=== PATIENT | female | born 1970 | race African-American/Black ===

== ENCOUNTER 2017-06-15 20:33 | Inpatient (IN) | payer BC ==
[~2017-06-15 20:33] MED LIST: ISOVUE-370 76%-LOCM 1 ML ONE
[2017-06-15] MEDS ORDERED: Labetalol HCl 100 MG/20 ML VIAL ONE (21:06)
[2017-06-15 21:08] LABS: #Eosinphils 0.1 thou/uL (0.0-0.7); #Lymphocytes 1.9 thou/uL (1.20-3.40); #Monocytes 0.8 thou/uL (0.11-0.59); #Neutrophils 8.1 thou/uL (1.40-6.50); %Eosinophils 0.7 % (0.0-10.0); %Lymphocytes 17.2 % (21.0-51.0); %Monocytes 7.1 % (0.0-10.0); %Neutrophils 74.9 % (42.0-75.0); Hemoglobin 13.4 g/dL (12.0-16.0); Mean Corpuscular HGB CONC 34.2 g/dL (32.0-36.0); Mean Corpuscular Hemoglobin 31.6 pg (27.0-31.0); Mean Corpuscular Volume 92.6 fl (81.0-99.0); Mean Platelet Volume 8.7 fL (7.4-10.4); Platelet Count 222 thou/uL (130-400); RBC Distribution Width 11.2 % (11.5-14.5); Red Blood Cell (RBC) Count 4.23 mill/uL (4.20-5.40); White Blood Cell (WBC) Count 10.7 thou/uL (4.8-10.8)
[2017-06-15 21:30] LABS: ALT (SGPT) 20 U/L (8-55); AST (SGOT) 22 U/L (5-34); Albumin 4.5 g/dL (3.5-5.0); Alkaline Phosphatase 101 U/L (40-150); Anion Gap 14 mmol/L (10-20); BUN (Urea Nitrogen) 12 mg/dL (7.0-18.7); Bilirubin, Total 0.5 mg/dL (0.2-1.2); CK (CPK) 102 U/L (29-168); Calc. Creatinine Clearance 0 mL/min (70-130); Calcium 9.7 mg/dL (7.8-10.44); Carbon Dioxide 24 mmol/L (22-29); Chloride 102 mmol/L (98-107); Estimated GFR-MDRD 82; Globulin 3.4 g/dL (2.4-3.5); Glucose 120 mg/dL (70-105); Lipase 27 U/L (8-78); Protein, Total 7.9 g/dL (6.0-8.3); Sodium 136 mmol/L (136-145)
--- NOTE | 2017-06-15 21:31 | RAD ---
PORTABLE AP CHEST X-RAY 06/15/17 HISTORY: High blood pressure reading at home. Chest pain. COMPARISON: None available. FINDINGS: The cardiac silhouette and pulmonary vasculature are within normal limits. The lungs are clear. osseo us structures are intact. Surgical clips overlie the right upper quadrant. IMPRESSION: No acute cardiopulmonary process. POS: [facility]
[2017-06-15 21:34] LABS: CKMB 0.5 ng/mL (0-6.6); Troponin I Less than 0.010 ng/mL (< 0.028)
[2017-06-15] MEDS ORDERED: Nitroglycerin 2% Ointment 1 INCH/1 GM Packet ONE (22:03)
--- NOTE | 2017-06-15 22:30 | CT ---
CT ANGIOGRAM THORAX WITH IV CONTRAST AND 3D RECONSTRUCTIONS 06/15/17 HISTORY: Chest pain and tachycardia. Nausea. FINDINGS: No filling defects are seen in the pulmonary arteries to suggest a pulmonary embolus. The thoracic ao rta is normal in caliber without evidence of an aortic dissection. There is no evidence of lymphadenopathy. There is distention of the distal esophagus with gas and question of mild thickening involving the wa lls of the distal esophagus. There are dependent atelectasis in the lungs bilaterally. No pulmonary nodule, mass, or pleural effus ion is seen bilaterally. Postsurgical changes related to cholecystectomy are noted. There is suggestion of severe focal narrowing involving the origin of the celiac axis. The SMA is ect atic but incompletely imaged or evaluated on this exam. The upper abdomen otherwise demonstrates a normal CT appearance for arterial phase of imaging. IMPRESSION: 1. No CT evidence of a pulmonary embolus. 2. Gaseous distention of the distal esophagus with mild prominence and questionable thickening i nvolving the haeys of the distal esophagus. 3. 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 POS: [facility]
[2017-06-15] MEDS ORDERED: Ondansetron ODT 4 MG TAB SL PRN (23:23)
[2017-06-15] MEDS ORDERED: Ondansetron HCl/PF 4 MG/2 ML Vial IVP PRN (23:23)
[2017-06-15 23:31] VITALS: BMI 26.3
[2017-06-16 00:51] LABS: Troponin I Less than 0.010 ng/mL (< 0.028)
[2017-06-16] MEDS ORDERED: cloNIDine 0.1 MG TAB PO PRN (00:53)
[2017-06-16] MEDS ORDERED: HYDROcodone/Acetaminophen 5/325 mg Tablet PO PRN (00:53)
[2017-06-16] MEDS: Acetaminophen 325 MG TAB PO PRN (01:28)
[2017-06-16 03:57] LABS: Troponin I Less than 0.010 ng/mL (< 0.028)
[2017-06-16] MEDS ORDERED: Calcium Carbonate 500 MG ChewTAB PO PRN (04:07)
[2017-06-16] MEDS ORDERED: Milk Of Magnesia 30 ML UDCUP PO PRN (04:07)
[2017-06-16] MEDS ORDERED: Senokot 8.6 MG TAB PO PRN (04:07)
[2017-06-16] MEDS ORDERED: Mag-Al 1200 mg/1200 mg/30 ML UDCUP PO PRN (04:07)
[2017-06-16] MEDS ORDERED: Ondansetron ODT 4 MG TAB PO PRN (04:07)
[2017-06-16] MEDS ORDERED: Ondansetron HCl/PF 4 MG/2 ML Vial IVP PRN (04:07)
[2017-06-16] MEDS ORDERED: Nitroglycerin 0.4 MG TAB (25 Tab Bottle) PO PRN (04:07)
--- NOTE | 2017-06-16 05:00 | HP ---
DATE OF ADMISSION: 06/15/2017 The patient was seen and examined on 06/15/2017. PRIMARY CARE PHYSICIAN: Trey Ham M.D. PRIMARY ANIMAL BREEDER: Karl Li M.D. CHIEF COMPLAINT: Palpitations. HISTORY OF PRESENT ILLNESS: The patient is a 47-year-old female with hypertension, presented to the emergency room with chest discomfort and palpitations. Over the last 24 hours, the patient has symptoms from seasonal allergies. The patient took over-the- counter decongestant as well as Afrin nasal spray. Twenty minutes after taking Afrin nasal spray, heron munoz noticed that her heart rate was in 160s on her Apple watch. She also had mild chest discomfort oanh ng with nausea. This started around 7:30 p.m. while she was resting and watching TV. She denies any shortness of breath, lightheadedness, dizziness or syncope. She felt the palpitations. For this re ason, she presented to the emergency room. PAST MEDICAL HISTORY: 1. Hypertension. 2. Negative stress test earlier this year at Dr. Li's office per patient report. The patient also had an echocardiogram at Dr. Li's office earlier this year. PAST SURGICAL HISTORY: 1. Cholecystectomy. 2. Hysterectomy. 3. Tubal ligation. ALLERGIES: No known drug allergies. CURRENT HOME MEDICATIONS: Toprol-XL 50 mg at bedtime. SOCIAL HISTORY: The patient currently lives at home. No smoking, alcohol, or drug use. She is FULL CODE, makes her own decision. FAMILY HISTORY: Positive for diabetes. No premature coronary artery disease in her family. REVIEW OF SYSTEMS: The following complete review of systems was negative, unless otherwise mentioned in the HPI or below: Constitutional: Weight loss or gain, ability to conduct usual activities. Sk in: Rash, itching. Eyes: Double vision, pain. ENT/Mouth: Nose bleeding, neck stiffness, pain, te nderness. Cardiovascular: Palpitations, dyspnea on exertion, orthopnea. Respiratory: Shortness of breath, wheezing, cough, hemoptysis, fever or night sweats. Gastrointestinal: Poor appetite, abdom inal pain, heartburn, nausea, vomiting, constipation, or diarrhea. Genitourinary: Urgency, frequenc y, dysuria, nocturia. Musculoskeletal: Pain, swelling. Neurologic/Psychiatric: Anxiety, depressio n. Allergy/Immunologic: Skin rash, bleeding tendency. PHYSICAL EXAMINATION: VITAL SIGNS: In the emergency room showed temperature 98.9, respiration 18, pulse rate of 141 with a blood pressure 145/91 with O2 saturation 100% on room air. GENERAL: A 47-year-old female in no apparent distress. Denies any chest discomfort at this time. HEENT: Head atraumatic, normocephalic. Sclerae are anicteric. Moist mucous membrane, no oral lesio n. NECK: Supple, no JVD appreciated. No carotid bruit. LUNGS: Clear to auscultation bilaterally, no wheezing, rales or rhonchi. HEART: S1, S2 present. Tachycardic, no murmur, rubs or gallops appreciated. ABDOMEN: Soft. Bowel sounds present, no rebound, guarding, no costovertebral angle tenderness. EXTREMITIES: No edema or calf tenderness. NEUROLOGIC: Grossly nonfocal, moves all four extremities. PSYCHIATRY: Alert, awake, oriented x3. SKIN: Warm and dry. LYMPH NODES: No palpable lymph nodes in the neck. PERIPHERAL VASCULAR: Radial pulses palpable bilaterally. MUSCULOSKELETAL: No joint swelling or tenderness. LABORATORY AND X-RAY FINDINGS: Thyroid studies were normal earlier this year per patient report. Th e labs were done at outside facility. CBC showed WBC 10.7 with hemoglobin 13.4, platelet of 222. Ch emistries showed sodium 136, potassium 4, chloride 102, bicarbonate 24, BUN 12, creatinine 0.89. Tro ponin was normal. Lactic acid was 1.0. Chest x-ray by my review was negative for infiltrate. CT an giogram of the chest was negative for pulmonary embolism. It showed gaseous distention of the distal esophagus with mild prominence and questionable thickening involving the wall of the distal esophagu s. It also showed focal severe narrowing of the origin of the celiac artery. EKG by my review showe d sinus tachycardia without any ST-T wave changes. IMPRESSION: 1. Palpitations with chest discomfort of unclear etiology. Maximum heart rate at home was in 160s p er patient report. Please note that patient recently started kabv-kuw-cfolubi decongestant as well a s Afrin nasal spray. Thyroid studies were normal earlier this year at outside facility per patient r eport. The patient denies any caffeine use. 2. Hypertension. 3. Seasonal allergies. 4. Negative stress test earlier this year at Dr. Li's office. The patient also had echocardi ogram at the same time. 5. Gaseous distention of the distal esophagus with questionable wall thickening, suspected secondary to gastroesophageal reflux disease. 6. 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 The patient is asymptomatic and denie s any symptoms consistent with intestinal angina. PLAN: The patient will be monitored on the telemetry unit. Cardiology will be consulted. We will r esume beta blockers. Serial troponins are negative. The patient had negative thyroid studies aggie gonzalez this year per patient report at outside facility. Plan of care was discussed with the patient, she stated understanding.
[2017-06-16] MEDS: Fluticasone Propionate Nasal Spray 16 gm Bottle NASAL SCH (10:50)
[2017-06-16] MEDS: Loratadine 10 MG TAB PO SCH (10:51)
[2017-06-16] MEDS: Aspirin 81 mg Enteric Coated Tablet PO SCH (10:51)
--- NOTE | 2017-06-16 18:16 | PDOC.PN ---
- Subjective Encounter Start Date: 06/16/17 Encounter Start Time: 11:00 Pt seen for followup re: chest pain. Denies chest pain, shortness of breath, fevers or chills. - Objective Resuscitation Status: Resuscitation Status FULL:Full Resuscitation MAR Reviewed: Yes Vital Signs & Weight: Vital Signs (12 hours) Temp Pulse Resp BP BP Pulse Ox 06/16/17 16:23 99.1 F 101 H 16 120/74 97 06/16/17 12:12 98.4 F 96 17 127/77 100 06/16/17 08:00 99.1 F 84 18 120/72 120/72 98 Weight Weight 167 lb 14.4 oz I&O: 06/15/17 06/16/17 06/17/17 06:59 06:59 06:59 Intake Total 240 Balance 240 Result Diagrams: 06/15/17 21:04 06/15/17 21:04 EKG Reviewed by me: Yes (Tele: NSR) Phys Exam - Physical Examination Constitutional: NAD HEENT: moist MMs, oral pharynx no lesions Neck: supple Respiratory: clear to auscultation bilateral Cardiovascular: RRR Gastrointestinal: positive bowel sounds Musculoskeletal: pulses present Neurological: moves all 4 limbs Psychiatric: normal affect Skin: no rash Dx/Plan (1) Chest pain Code(s): R07.9 - CHEST PAIN, UNSPECIFIED Status: Acute Comment: No recurrence, pt reports having a normal stress test earlier this year. Awaiting cardiology input. (2) Tachycardia Code(s): R00.0 - TACHYCARDIA, UNSPECIFIED Status: Acute Comment: Resolved, etiology unclear. (3) HTN (hypertension) Code(s): I10 - ESSENTIAL (PRIMARY) HYPERTENSION Status: Chronic Comment: Monitor vital signs, titrate antihypertensives as needed. - Plan * . Review of Systems - Review of Systems Constitutional: negative: fever, chills, sweats, weakness, malaise Respiratory: negative: Cough, Dry, Shortness of Breath, Hemoptysis, SOB with Excertion, Pleuritic Pain, Sputum, Wheezing Cardiovascular: negative: chest pain, palpitations, orthopnea, paroxysmal nocturnal dyspnea, edema, light headedness - Medications/Allergies Allergies/Adverse Reactions: Allergies Allergy/AdvReac Type Severity Reaction Status Date / Time No Known Drug Allergies Allergy Verified 06/15/17 23:29 Medications: Current Medications Acetaminophen (Tylenol) 650 mg PO Q4H PRN PRN Reason: Headache/Fever or Mild Pain Last Admin: 06/16/17 01:28 Dose: 650 mg Hydrocodone Bitart/Acetaminophen ([place] 5/325) 1 tab PO Q4H PRN PRN Reason: Moderate Pain (4-6) Al Hydroxide/Mg Hydroxide (Maalox) 30 ml PO Q6H PRN PRN Reason: Heartburn or Indigestion Aspirin (Ecotrin) 81 mg PO DAILY [facility] Last Admin: 06/16/17 10:51 Dose: 81 mg Calcium Carbonate (Tums) 1,000 mg PO Q4H PRN PRN Reason: Heartburn or Indigestion Clonidine (Catapres) 0.1 mg PO Q4H PRN PRN Reason: Systolic BP > 180 Fluticasone Propionate (Flonase Nasal [place]) 0 gm NASAL DAILY [facility] Last Admin: 06/16/17 10:50 Dose: 2 spr Loratadine (Claritin) 10 mg PO DAILY [facility] Last Admin: 06/16/17 10:51 Dose: 10 mg Magnesium Hydroxide (Milk Of Magnesium) 30 ml PO DAILYPRN PRN PRN Reason: Constipation Nitroglycerin (Nitrostat) 0.4 mg PO Q5MIN PRN PRN Reason: Chest Pain Ondansetron HCl (Zofran Odt) 4 mg PO Q6H PRN PRN Reason: Nausea/Vomiting Ondansetron HCl (Zofran) 4 mg IVP Q6H PRN PRN Reason: Nausea/Vomiting Pantoprazole Sodium (Protonix) 40 mg PO BID [facility] Last Admin: 06/16/17 10:51 Dose: 40 mg Senna (Senokot) 2 tab PO HSPRN PRN PRN Reason: Constipation Sodium Chloride (Flush - Normal Saline) 10 ml IVF Q12HR [facility] Last Admin: 06/16/17 10:52 Dose: 10 ml Sodium Chloride (Flush - Normal Saline) 10 ml IVF PRN PRN PRN Reason: Saline Flush
[2017-06-17] MEDS: Acetaminophen 325 MG TAB PO PRN (04:14)
[2017-06-17] MEDS: Fluticasone Propionate Nasal Spray 16 gm Bottle NASAL SCH (09:21)
[2017-06-17] MEDS: Aspirin 81 mg Enteric Coated Tablet PO SCH (09:24)
[2017-06-17] MEDS: Loratadine 10 MG TAB PO SCH (09:25)
--- NOTE | 2017-06-17 14:06 | PDOC.CTH ---
Cardiology Progress Note - Subjective The pt seen and examined. No overnight events. No cardiac complaints. - Objective Vital Signs Temp Pulse Resp BP BP Pulse Ox 06/17/17 08:00 98.7 F 89 18 118/76 100 06/17/17 04:17 99.4 F 99 18 119/77 119/77 97 Weight 167 lb 14.4 oz 06/16/17 06/17/17 06/18/17 06:59 06:59 06:59 Intake Total 240 3320 Balance 240 3320 - Physical Examination General/Neuro: alert & oriented x3 Neck: no JVD present Lungs: CTA Heart: RRR Abdomen: soft Extremities: other: (No edema) - Telemetry Telemetry Rhythm: SR 90-100s - Labs Result Diagrams: 06/15/17 21:04 06/15/17 21:04 Troponin/CKMB CK-MB (CK-2) 0.5 ng/mL (0-6.6) 06/15/17 21:04 Troponin I Less than 0.010 ng/mL (< 0.028) 06/16/17 03:17 - Assessment/Plan 1. Tachycardia - HR went up to 130s for 5 mins last night. Her HR has been 90- 100s. Her HR was up to 100s with walking around the unit today without any cardiac complaints. 2. HTN - stable with Metoprolol XL 50mg daily and ASA 81mg daily; cont. to monitor MAR reviewed * Education of how to check her VS, especially HR. * From cardiac standpoint, the pt is stable to d/c home. The pt will f/u with Dr Narvaez's office within 2-4 wks. . Review of Systems - Review of Systems Constitutional: reports: no symptoms reported EENTM: reports: no symptoms reported Respiratory: reports: no symptoms reported Cardiac (ROS): reports: no symptoms reported ABD/GI: reports: no symptoms reported : reports: no symptoms reported Musculoskeletal: reports: no symptoms reported Skin: reports: no symptoms reported
[2017-06-17 17:52] VITALS: BP 120/74; TEMP 98.4
--- NOTE | 2017-06-17 22:29 | DIS ---
DATE OF ADMISSION: 06/15/2017 DATE OF DISCHARGE: 06/17/2017 PRIMARY CARE PHYSICIAN: Trey Ham M.D. DISCHARGE DIAGNOSES: 1. Palpitations. 2. Tachycardia. CONDITION OF PATIENT ON THE DAY OF DISCHARGE: Stable. I assessed Ms. Agee on the day of discharge. She denies any chest pain or shortness of breath. No recurrence of palpitations. Vital signs are stable. S1 and S2 are heard, regular. Lungs are clear to auscultation bilaterally. CONSULTATIONS DURING THIS HOSPITALIZATION: Cardiology, Dr. Bedolla. DISCHARGE MEDICATIONS: Toprol-XL 50 mg daily. HOSPITAL COURSE: Ms. Agee is a pleasant 47-year-old lady who was admitted to [facility] on 06/15/2017 for tachycardia and palpitations. Please refer to the history and physical note from 06/15/2017 for further information. She was monitored on telemetry. CT angiogram at the time of admission did not reveal any evidence of pulmonary embolus. She had gaseous distention of th e distal esophagus with mild prominence and questionable thickening involving the hayes of the distal esophagus. She also had focal severe narrowing at the origin of the celiac artery. She was asympto matic in terms of abdominal symptoms. She was seen by Cardiology Service. Her beta alexia was continued. She had tachycardia on the even ing of 06/16/2017, but after that she did not have further episodes of tachycardia. She is being dis charged home in a stable condition. She is advised to follow up with her pari mutuel ticket seller in 2-3 weeks. Many thanks for allowing me to participate in your patient's care. Please feel free to contact me wi th any questions or concerns. DISCHARGE DESTINATION: Home. TOTAL AMOUNT OF TIME SPENT COORDINATING THIS DISCHARGE: 22 minutes.
--- NOTE | 2017-06-18 12:47 | CON ---
DATE OF CONSULTATION: 06/16/2017 PRIMARY CARE DOCTOR: Dr. Trey Ham. PRIMARY BOOK ILLUSTRATOR: Dr. Karl Li. REFERRING DOCTOR: Dr. Sommer. REASON FOR CARDIOLOGY CONSULTATION: Tachycardia. HISTORY OF PRESENT ILLNESS: Ms. Agee is a 47-year-old -[place] female with a significant history of palpitation and hypertension. She has seen Dr. Karl Li who is a baseball inspector and seen the patient for hypertension and palpitation in the office. The patient has had a 24-hour event monitor before which showed heart rate to 70 to 140, the average if 106 with no arrhythmia or occasional PVCs. At that time, the patient's Toprol was increased to 50 mg once a day. Last night, the patient started having palpitation and the patient has Apple watch showed the patient's heart rates was going up to 160s with mild lightheadedness for 15 minutes. The patient did not check her vital signs or check her pulse manually. The patient presented to the emergency department for further evaluation and treatment. During that episode, the patient denies shortness of breath, chest pain or tightness in her chest, numbness in the left upper extremity or any other cardiac complaints. During that initial Cardiology consult assessment, patient denies any cardiac complaints include the palpitation or lightheadedness. The patient has a Maxx treadmill stress test in 03/2017 which shows normal stress test with normal ejection fraction. The patient's echocardiogram done in 03/2017 which shows 55-60% of EF with trace mitral valve regurgitation and the patient's 24 hour event monitor in 05/2017 shows heart rates from 70-140s with no arrhythmia, and occasional PVCs. She walked 1 to 1-1/2 hours 3-4 times a week. She reports that she has not had any palpitations in her chest and during walking when she lost some weight. She does not have any cardiac complaints at this time. PAST MEDICAL HISTORY: 1. Hypertension. 2. Palpitations PAST SURGICAL HISTORY: 1. Cholecystectomy. 2. Hysterectomy. 3. Tubal ligation. FAMILY HISTORY: The patient's mother has a medical history of hypertension and one of her aunts has a history of a CVA and another aunt has a history of diabetes. SOCIAL HISTORY: The patient is a single with her 2 children, they live well. She denies smoking, ETOH or illicit drug abuse. ALLERGIES: She has no known drug allergies. MEDICATIONS: Toprol-XL 50 mg once a day at night. REVIEW OF SYSTEMS: Complete review of systems was negative, unless otherwise mentioned in the HPI or below. Constitutional: Weight loss or gain, sense of well-being, ability to conduct usual activities, exercise tolerance. Skin: Rash, itching, change in hair growth or nail change breast lump pain, tenderness or swelling, nipple discharge. Eyes: Vision change, double vision, tearing, blind spots or pain; however, she has a small cataract. HEENT: Headache, vertigo, lightheadedness, nose bleeding, cold, obstruction, discharge , dental difficulties, gingival bleeding, neck stiffness, pain, tenderness, mass in the thyroid or other areas. Patient's thyroid function was evaluated by the patient's SENIOR MEDIA PLANNER doctor which shows normal per patient report. Cardiovascular: Precordial pain, substernal distress, syncope, dyspnea on exertion, orthopnea, nocturnal dyspnea, edema, cyanosis, heart murmurs, varicosis, claudication. Respiratory: Shortness of breath, wheezing, stridor, cough hepatitis. Gastrointestinal: Poor appetite, dyspnea, indigestion, abdominal pain, heartburn, eructation, nausea, vomiting, jaundice, constipation , abnormal blood in the stool. Genitourinary: Urgency, frequency, dysuria, nocturia, hematuria, polyuria. Musculoskeletal: Pain, swelling, redness or heat all of muscle or joint, limit of motion. Neurologic: Conversion seizure, paralysis, tremor, incoordination. Psychiatric: Emotional problem, anxiety, depression, previous psychiatric care, unusual perception, hallucination. PHYSICAL EXAMINATION: VITAL SIGNS: Blood pressure 120/74, pulse is 80s to 90s with sinus rhythm on the telemetry records. Respiratory rate 17, temperature 98.4. GENERAL: Well-developed, well-nourished without any acute distress. HEAD: Normocephalic, atraumatic. EYES: Wears glasses. Extraocular muscle movement intact. ENT: Oral nasal mucosa moist without lesion. NECK: No JVD. Neck is supple. Normal range of motion. LUNGS: Clear to auscultation bilaterally, diminished at the bases, but no wheezing, rales or rhonchi noted. CARDIOVASCULAR: Regular rate and rhythm, normal S1, S2. There are no S3, S4, no significant murmur, hives thrill noted. Pulses in the bilateral dorsal pedis , posterior tibial, and popliteal carotid pulse present without bruits, or thrill. No edema in the bilateral lower extremities. ABDOMEN: Soft, nontender or mass to palpate, nondistended. Bowel sounds are present. MUSCULOSKELETAL: Able to move all extremities. SKIN: Warm and dry. No skin rash, lesion or bruise noted. NEUROLOGIC: Alert, oriented x4, awake. Normal affect and nonfocal. PSYCHIATRIC: Mood and affect are normal. EKG: A 12-lead EKG at ER shows sinus tachycardia with heart rate of 123. LABORATORY DATA: WBC 10.7, hemoglobin 13.4, hematocrit 39.2, platelets 222. Sodium 136, potassium 4.0, BUN 12, creatinine 0.89, CK-MB 0.5, troponin less than 0.010 x3. IMAGING: CT chest shows no evidence of PE and a chest x-ray shows no acute cardiopulmonary process. ASSESSMENT AND PLAN: 1. Palpitation. The patient's condition is stable at this moment. We would like to continue current medication at this moment. The patient was explained and instructed to check the pulse herself, but do not rely on the Apple watch. She was explained how to take the pulses herself manually. She was recommended not to take [id number] decongestant medication which may cause palpitation symptoms at this time per patient. 2. Hypertension. Blood pressure is stable at this moment with Toprol 50 mg once a day. We would like to continue with aspirin 81 mg once a day. Thank you very much for allowing the Cardiology service to participate in the care of this patient. We will follow along with the patient's care team and make further recommendations as appropriate. KELSYE
--- NOTE | 2017-06-18 12:48 | ADD-CON ---
ADDENDUM Please refer to the notes already dictated by the nurse practitioner. DATE OF ADMISSION: 06/15/2017 DATE OF CONSULTATION: 06/16/2017 INDICATION FOR CONSULTATION: A 47-year-old female with inappropriate sinus tachycardia. Please, ref er to the notes already dictated by my Nurse Practitioner. We have been discussed this patient. I w karina agree with her assessment and plan. HISTORY OF PRESENT ILLNESS: This is a very pleasant 47-year-old female who has been noted to have so me tachycardia. She was seen by one of my colleagues, Dr. Li, who has had a negative stress t est as well as a normal echocardiogram and also had a monitor placed which did not show any significa nt abnormalities. She continued to have some palpitation. She had been placed on beta-alexia. She did miss 1 dose then took it yesterday less than an hour. After taking it, her heart rate was somew hat fast and she presented to the emergency room where she complained of some chest pain and was foun d to have some sinus tachycardia with heart rate of 123 beats per minute, who was admitted for [facility] evaluation. At this time, while she is sleeping, the heart rates in the 80s and she is awake, the heart rates in the 90s to low 100s and she has had no significant abnormalities otherwise. She does not have any indication of ischemia on the EKG and her enzymes have remained negative. She may have some inappropriate sinus tachycardia, but overall does not appear to have significant tachycardia. S he was concerned that she also had some dizziness yesterday when she had the sinus tachycardia. Othe rwise, she has been doing quite well with the beta blockers. It appears when she takes some medicati ons, she may need to increase the dose of the medicines. If this is not adequate, she eventually may need to undergo evaluation by the chemical preparer. PAST MEDICAL HISTORY: As noted for her hypertension as well as the palpitations and sinus tachycardi a. ALLERGIES: She has no allergies. MEDICATIONS PRIOR TO ADMISSION: Included Toprol-XL. PHYSICAL EXAMINATION: GENERAL: Reveals a well-developed, well-nourished female in no acute distress. She is alert and rafiq ented. She is afebrile. Heart rates in the low 100s, but less than 110 beats per minute, respirator y rate 16. She has blood pressure 128/72. HEENT: Shows the head to be normocephalic and atraumatic. Carotid pulses are present. There were n o bruits. CHEST: Clear. No rales, rhonchi, or wheezing were noted. CARDIOVASCULAR: Exam reveals a regular rate and rhythm at this time. Slight tachycardia, but no sig nificant murmurs, heaves, thrills, bruits or rubs are noted. ABDOMEN: Soft and nontender with positive bowel sounds. No organomegaly or masses are noted. Femor al pulses are present. EXTREMITIES: Showed no clubbing, cyanosis or edema. Pedal pulses are also present. NEUROLOGIC: She is fully intact with normal strength and tone. SKIN: Warm and dry. LABORATORY DATA: Hemoglobin is 13.4. Her potassium is 4.0, creatinine 0.89, blood sugars 120. EKG is unremarkable except for some sinus tachycardia. PRESENT MEDICATIONS: Include aspirin 81 mg a day, as well as Claritin 10 mg a day, Protonix 40 mg b. i.d. She has not been placed back on her beta blockers and we will reinitiate this medication in ord er to control the heart rate. IMPRESSION: 1. Sinus tachycardia. This may be inappropriate sinus tachycardia, but does not appear to be elevat ed even while she is sleeping. Certainly, heart rate has dropped down to the 80s. It appears, we wi ll resume her medications and if this is not adequate, then she may need to be seen by the electrophy siologist. 2. Some allergies that she had recently also use some nasal spray, but this is not likely the etiolo gy of her tachycardia. I would suggest we continue the aspirin at this time as far as her chest pain is concerned. I did not see any indication that this is cardiac in nature. She had a recent negati ve stress test. 3. Hypertension. This is under good control at this time. I would not change any significant medic ation, but would add a low dose of beta blockers for heart rate and blood pressure control.
== END 2017-06-17 17:10 | disposition home or self-care (01) | DRG 310 ==
LOC: ERS 20:33 → 2NO 23:08
PROVIDERS: ADMIT Internal Medicine; ATTEND Internal Medicine
DX: R00.2 Palpitations (principal); R00.0 Tachycardia, unspecified; I10 Essential (primary) hypertension; Z79.82 Long term (current) use of aspirin; Z90.49 Acquired absence of other specified parts of digestive tract; Z98.51 Tubal ligation status; Z90.710 Acquired absence of both cervix and uterus; K21.9 Gastro-esophageal reflux disease without esophagitis
CPT/HCPCS: 36415; 71045; 71275; 80053; 82553; 83605; 83690; 84484; 85025; 93005; 94760; A4216

== ENCOUNTER 2021-08-04 09:08 | Outpatient (CLI) | payer BC | END 2021-08-04 09:09 | disposition home or self-care (01) | LOC: BICMAMMO 09:08 | PROVIDERS: ATTEND Internal Medicine | DX: Z12.31 Encounter for screening mammogram for malignant neoplasm of breast (principal) | CPT/HCPCS: 77063; 77067 ==